=== PATIENT | male | born 1950 | race Caucasian/White ===

== ENCOUNTER → 2016-10-22 | Day surgery (SDC) | payer MEDICARE ==
[~2016-10-22] VITALS: Ht 185.4 cm; Wt 105.4 kg
[~2016-10-22] MED LIST: ACETAMINOPHEN 1000 MG/100 ML VIAL IV ONE; ACETAMINOPHEN 1000 MG/100 ML VIAL IV SCH; BUPIVACAINE/EPINEPHRINE 0.25% PF 30 ML VIAL ONE; DEXAMETHASONE SOD PHOS 4 MG/ML VIAL ONE; FAMOTIDINE 20 MG/2 ML VIAL ONE; INSULIN HUMAN REGULAR 1,000 UNITS/10 ML VIAL SQ PRN; KETOROLAC TROMETHAMINE 30 MG/ML (IVP) VIAL ONE; LACTATED RINGER'S 1000 ML IV SCH; LISI10TA PO; METOPROLOL TARTRATE 25 MG TAB PO PRN; MIDAZOLAM HCL 2 MG/2 ML VIAL ONE; MULT1TAB84 PO; NEOSTIGMINE 3 MG/3 ML SYR IV ONE; ONDANSETRON HCL 4 MG/2 ML VIAL ONE; PHENYLEPH/NS 1000 MCG/10 ML SYR IV ONE; PROPOFOL 200 MG/20 ML AMP IV ONE; SODIUM CHLORID 0.9% 500 ML IV SCH; VENTAER INH; ceFAZolin 2 GM PREMIX 50 ML IV SCH; ePHEDrine/NS 25 MG/5 ML SYR IV ONE; fentaNYL CITRATE 250 MCG/5 ML AMP ONE
[2016-10-22 07:13] VITALS: BP 146/99; PULSE 75; RESP 16; TEMP 98.4; O2SAT 98
--- NOTE | 2016-10-22 10:32 | PD.OP ---
cc: Marco Blackburn MD Operative Report Date of Surgery: Oct 22, 2016 Preoperative Diagnosis: Chronic cholecystitis/lithiasis Postoperative Diagnosis: Chronic cholecystitis/lithiasis Procedure: Laparoscopic cholecystectomy Anesthesia: GETA Surgeon: Marco Blackburn Sandstone Inspector Repairer(s): NABOR Win Operation and Findings: Operative findings: The patient had a minimally to moderately diseased appearing gallbladder which had a few adhesions along its length. No other abnormalities were noted. The cystic duct and common bile duct were seen to be of normal caliber. Operative procedure: The patient brought to the operating room and after satisfactory general endotracheal anesthesia was obtained, the abdomen was prepped and draped in the usual sterile fashion. 0.5% Marcaine with epinephrine was used to infiltrate the skin for local anesthesia. A small incision was made just above the umbilicus and a 5 mm trocar was inserted into the peritoneal cavity under direct visualization. The abdomen was distended to 15 mmHg using carbon dioxide after which the camera was reinserted and visceral injury inspected 4, with none being identified. Under direct visualization a 5 mm port and a 12 mm port were placed in the upper midline. The fundus of the gallbladder was identified and grasped. It was rotated superiorly over the right lobe of the liver with the aid adhesions and being placed on tension. The adhesions were taken down bluntly with no problem. Donaldson's pouch was grasped and retracted inferiorly and laterally placing tension on the hepatoduodenal ligament. The cystic duct and cystic artery were then dissected free bluntly to obtain the critical view. Once the critical view been obtained cystic artery was divided near structures of the gallbladder using the harmonic scalpel. The cystic duct was then dissected down to essentially the common bile duct which was visualized. The cystic duct was then divided with a Harmonic scalpel. The gallbladder was dissected free from the liver bed using the Harmonic. It was placed within an Endo Catch bag and brought through the upper midline incision where his entity of its bile and withdrawn without problem. The trochars reinserted and the liver bed inspected. Hemostasis was assured. The cystic duct cystic artery stumps were both inspected and found to be intact with no leakage of bile or blood. The carbon dioxide was then vented as completely as possible to the atmosphere. The ports were removed, and the skin defects closed with interrupted 4-0 PDS subcutaneous stitches. Steri-Strips were applied and the patient was then awakened and taken from the operating room, in satisfactory condition, having tolerated the procedure without problem. Estimated blood loss was less than 5 mL's. The isthmus ring, sponge, needle counts were reported as being correct 2 at the end of the procedure. Marco Blackburn MD Oct 22, 2016 10:32
[2016-10-22 12:10] VITALS: BP 119/69; PULSE 62; RESP 18; TEMP 97.1; O2SAT 97
== END | disposition home or self-care (01) ==
LOC: HSDC 06:23
PROVIDERS: ATTEND Surgery
DX: K80.10 Calculus of gallbladder with chronic cholecystitis without obstruction (principal); I10 Essential (primary) hypertension; J45.909 Unspecified asthma, uncomplicated
CPT/HCPCS: 00790; 47562; 88304; J0131; J0690; J1100; J1885; J2250; J2370; J2405; J2710; J3010; J7120